=== PATIENT | female | born 1995 | race Caucasian/White ===

== ENCOUNTER 2018-11-22 20:27 | Emergency (ER) | payer MEDICAID, OTHER ==
[2018-11-22 21:44] VITALS: BP 118/82; PULSE 84; RESP 20; TEMP 98.9; O2SAT 100
[2018-11-22] MEDS ORDERED: Sodium Chloride 0.9% 1,000 ML IV ONE (22:00)
[2018-11-22 22:49] LABS: BASO % 0.2 % (0.0-2.0); EOS % 0.1 % (0.0-4.0); HEMOGLOBIN 12.5 g/dL (11.0-16.0); LYMPH # 0.9 K/uL (1.0-4.3); LYMPH % 5.6 % (20.0-40.0); MEAN CELL VOLUME 92.3 fL (81.0-99.0); MEAN CORPUSCULAR HEMOGLOBIN 31.3 pg (27.0-31.0); MEAN CORPUSCULAR HGB CONC 33.9 g/dL (33.0-37.0); MEAN PLATELET VOLUME 8.5 fL (7.2-11.7); MONO # 0.3 K/uL (0.0-0.8); NEUT # 14.5 K/uL (1.8-7.0); NEUT % 92.1 % (50.0-75.0); PLATELET COUNT 247 K/uL (130-400); RBC 3.98 Mil/uL (3.80-5.20); RED CELL DISTRIBUTION WIDTH 12.9 % (11.5-14.5); WHITE BLOOD COUNT 15.8 K/uL (4.8-10.8)
[2018-11-22 22:53] LABS: HCG,QUALITATIVE URINE NEGATIVE (NEGATIVE)
--- NOTE | 2018-11-22 22:57 | C.PDOC ---
History Of Present Illness 23 year old female presents to the ER with a complaint of vomiting, nausea, and diarrhea typical of her menstrual periods. Patient states she has been vomiting since last night, not tolerating fluids. Denies fever or chills. Time Seen by Provider: 11/22/18 21:56 Chief Complaint (Nursing): Abdominal Pain History Per: Patient History/Exam Limitations: no limitations Onset/Duration Of Symptoms: Hrs Current Symptoms Are (Timing): Still Present Associated Symptoms: Nausea, Vomiting, Diarrhea. denies: Fever, Chills Exacerbating Factors: None Alleviating Factors: None Recent travel outside of the [place]: No Past Medical History Reviewed: Historical Data, Nursing Documentation, Vital Signs Vital Signs: Last Vital Signs Temp 98.9 F 11/22/18 21:40 Pulse 84 11/22/18 21:40 Resp 20 11/22/18 21:40 BP 118/82 11/22/18 21:40 Pulse Ox 100 11/22/18 21:40 Family History: States: Unknown Family Hx - Social History Hx Alcohol Use: No Hx Substance Use: No - Immunization History Hx Tetanus Toxoid Vaccination: No Hx Influenza Vaccination: No Hx Pneumococcal Vaccination: No Review Of Systems Constitutional: Negative for: Fever, Chills Cardiovascular: Negative for: Chest Pain, Palpitations Respiratory: Negative for: Cough, Shortness of Breath Gastrointestinal: Positive for: Nausea, Vomiting, Diarrhea Neurological: Negative for: Weakness, Numbness Physical Exam - Physical Exam Appears: Non-toxic, Other (Thin white female, Vomiting) Skin: Warm, Dry, Pale Head: Atraumatic, Normacephalic Eye(s): bilateral: Normal Inspection Oral Mucosa: Moist Neck: Normal, Supple Chest: Symmetrical, No Tenderness Cardiovascular: Rhythm Regular Respiratory: Normal Breath Sounds, No Rales, No Rhonchi, No Wheezing Gastrointestinal/Abdominal: Soft, No Tenderness Back: No CVA Tenderness Neurological/Psych: Oriented x3, Normal Speech ED Course And Treatment - Laboratory Results Result Diagrams: 11/22/18 22:42 11/22/18 22:42 Lab Results: Urine HCG, Qual Negative (NEGATIVE) 11/22/18 22:42 Urine HCG, Qual Negative (NEGATIVE) 11/22/18 22:42 Lab Interpretation: Abnormal (+ leukocytosis, prob due to vomiting) Urine POC: Negative O2 Sat by Pulse Oximetry: 100 Pulse Ox Interpretation: Normal Reevaluation Time: 23:12 Reassessment Condition: Improved (mild residual nausea) Medical Decision Making Medical Decision Making: typical menstrual period n/v/d improved with ED tx Disposition Doctor Will See Patient In The: Office Counseled Patient/Family Regarding: Studies Performed, Diagnosis - Disposition Referrals: Guillermo Armenta MD [Staff Provider] - Disposition: HOME/ ROUTINE Disposition Time: 23:13 Condition: GOOD Additional Instructions: zofran ODT 4 mg (nausea medication, dissolves in mouth) 1 tab every 6-8 hours as needed for nausea/vomiting Pepcid 20 mg twice a day (lowers stomach acid and settles stomach) bland diet for 2 days Prescriptions: Ondansetron ODT [Zofran ODT] 4 mg PO Q6H PRN #6 odt PRN Reason: Nausea/Vomiting Instructions: Diarrhea in Adolescents and Adults, Nausea and Vomiting, Adult (DC) Forms: [facility] (Macedonian) - Clinical Impression Clinical Impression: Diarrhea, Vomiting - Scribe Statement The provider has reviewed the documentation as recorded by the Scribkeren Guan All medical record entries made by the Scribe were at my direction and personally dictated by me. I have reviewed the chart and agree that the record accurately reflects my personal performance of the history, physical exam, medical decision making, and the department course for this patient. I have also personally directed, reviewed, and agree with the discharge instructions and disposition.
[2018-11-22 22:58] LABS: SQUAMOUS EPITHIAL 1 /hpf (0-5); URINE BACTERIA RARE (<OCC); URINE BILIRUBIN NEGATIVE (NEGATIVE); URINE BLOOD NEGATIVE (NEGATIVE); URINE CLARITY Clear (Clear); URINE COLOR Yellow (YELLOW); URINE GLUCOSE (UA) NORMAL (Normal); URINE LEUKOCYTE ESTERASE NEG Leu/uL (Negative); URINE PROTEIN 2+ mg/dL (NEGATIVE); URINE UROBILINOGEN NORMAL mg/dL (0.2-1.0)
[2018-11-22 23:02] LABS: ALB/GLOB RATIO 1.7 (1.0-2.1); ALBUMIN 5.2 g/dL (3.5-5.0); BLOOD UREA NITROGEN 10 mg/dL (7-17); CALCIUM 9.7 mg/dl (8.6-10.4); GFR NON-AFRICAN AMERICAN > 60; LIPASE 75 U/L (23-300)
[2018-11-22 23:11] LABS: ALT/SGPT 21 U/L (9-52); AST/SGOT 49 U/L (14-36)
[2018-11-23 00:58] LABS: EOSINOPHIL 2 % (0-4); LYMPHOCYTE 3 % (20-40); MONOCYTE 1 % (0-10); NEUTROPHIL 94 % (50-75); PLATELET ESTIMATE NORMAL (NORMAL); TOTAL CELLS COUNTED 100
== END 2018-11-22 23:51 | disposition home or self-care (01) ==
LOC: C.ER 20:27
DX: R11.2 Nausea with vomiting, unspecified (principal); R19.7 Diarrhea, unspecified
CPT/HCPCS: 80053; 81001; 83690; 84702; 84703; 85025; 96374; 96375; 99284; C9113; J1885; J2405; J7030

== ENCOUNTER 2019-01-09 12:33 | Emergency (ER) | payer OTHER ==
[2019-01-09 12:50] VITALS: BP 108/75; PULSE 61; RESP 18; TEMP 98.8; O2SAT 100
--- NOTE | 2019-01-09 13:22 | C.PDOC ---
History Of Present Illness 23 y/o female, otherwise well, comes in to ED after she injured her fingernail s/p fall earlier today. She states she had a long nail prosthesis on and broke the fall with the tip of her nail, ripping her original nail backwards. Patient reports of minimal bleeding with some pain and redness to the area, and rates pain 8/10 with movement. Nail is currently in place. Time Seen by Provider: 01/09/19 12:53 Chief Complaint (Nursing): Finger,Hand,&Wrist History Per: Patient History/Exam Limitations: no limitations Onset/Duration Of Symptoms: Hrs Current Symptoms Are (Timing): Still Present Past Medical History Reviewed: Historical Data, Nursing Documentation, Vital Signs Vital Signs: Last Vital Signs Temp 98.8 F 01/09/19 12:47 Pulse 61 01/09/19 12:47 Resp 18 01/09/19 12:47 BP 108/75 01/09/19 12:47 Pulse Ox 100 01/09/19 12:47 - Medical History PMH: No Chronic Diseases Family History: States: No Known Family Hx - Social History Hx Alcohol Use: No Hx Substance Use: No - Immunization History Hx Tetanus Toxoid Vaccination: Yes Hx Influenza Vaccination: Yes Hx Pneumococcal Vaccination: No Review Of Systems Except As Marked, All Systems Reviewed And Found Negative. Musculoskeletal: Positive for: Other (Pain to right 3rd digit). Negative for: Neck Pain, Back Pain Neurological: Negative for: Weakness, Numbness Physical Exam - Physical Exam Appears: Non-toxic, No Acute Distress Skin: Warm, Dry Head: Atraumatic, Normacephalic Eye(s): bilateral: Normal Inspection Extremity: No Swelling, Other (Right 3rd digit has some blood in cuticle region; nail is loose but in place and secured) Extremity: Bilateral: Normal ROM Pulses: Right Radial: Normal Neurological/Psych: Oriented x3, Normal Speech, Normal Motor, Normal Sensation ED Course And Treatment O2 Sat by Pulse Oximetry: 100 (RA) Pulse Ox Interpretation: Normal Medical Decision Making Medical Decision Making: Plan: --Motrin 600 mg PO --Tylenol PO Patient instructed to follow up with PMD in 1-2 days for further evaluation. Disposition Counseled Patient/Family Regarding: Diagnosis, Need For Followup, Rx Given - Disposition Disposition: HOME/ ROUTINE Disposition Time: 13:21 Condition: STABLE Prescriptions: Ibuprofen [Motrin] 600 mg PO TID #15 tab Instructions: Nail Avulsion (DC) Forms: [facility] (Eth[place]ian), General Discharge Instructions - POA Present On Arrival: None - Clinical Impression Clinical Impression: Nail avulsion - Scribe Statement The provider has reviewed the documentation as recorded by the Jessaibkeren Dave Provider Attestation: All medical record entries made by the Jessaibe were at my direction and personally dictated by me. I have reviewed the chart and agree that the record accurately reflects my personal performance of the history, physical exam, medical decision making, and the department course for this patient. I have also personally directed, reviewed, and agree with the discharge instructions and disposition.
== END 2019-01-09 13:37 | disposition home or self-care (01) ==
LOC: C.ER 12:33
DX: S61.302A Unspecified open wound of right middle finger with damage to nail, initial encounter (principal); W01.0XXA Fall on same level from slipping, tripping and stumbling without subsequent striking against object, initial encounter